=== PATIENT | male | born 1955 | race Caucasian/White ===

== ENCOUNTER → 2016-11-09 | Outpatient (CLI) | payer BC ==
--- NOTE | 2016-11-09 22:20 | CONS ---
DATE OF CONSULTATION: 11/09/2016 This patient is a 61-year-old gentleman who has been reevaluated in the sleep center for obstructive sleep apnea/hypopnea syndrome. HISTORY OF PRESENT ILLNESS/SLEEP-WAKE EVALUATION: Patient has a history of severe obstructive sleep apnea with apnea-hypopnea index 61.1 with oxygen desaturation to 67% documented in 2011. At that time his recommended BiPAP pressure was 14/10 cm of water. Patient continued to use his BiPAP equipment, but for the last several months he developed more tiredness and sleepiness during the day and started to take naps at 1:30 p.m. His sleep schedule is from around 10 or 11 p.m. until 4 a.m. Then he goes back to bed and sleeps from 6:30 a.m. until 8:30 a.m. No problem with falling asleep. No TV in bedroom. He usually sleeps on the back position. He wakes up from sleep 2 times with sweating and nocturia. [place] Sleepiness Scale is 8. PAST MEDICAL HISTORY: 1. BPH. 2. Irritable bowel syndrome. 3. Hyperlipidemia. 4. Hypertension. 5. Diabetes mellitus. 6. Memory problems. 7. Anxiety. MEDICATIONS: 1. Ramipril. 2. Metformin. 3. Venlafaxine. 4. Fenofibrate. 5. Folic acid. 6. Donepezil. 7. Naproxen. 8. Baby aspirin. 9. Vitamins. 10. ( ) 11. Atorvastatin. SOCIAL HISTORY: Negative for smoking or using alcohol. PAST SURGICAL HISTORY: 1. Status post left knee surgery. 2. Dental implants. REVIEW OF SYSTEMS: Tiredness and sleepiness during the day. No fevers. No double vision. No recent chest pain. No shortness of breath. No abdominal pain. No bleeding episodes. No blood in urine. No seizure episodes. PHYSICAL EXAMINATION: GENERAL: A pleasant 61-year-old gentleman without distress. VITAL SIGNS: BP 130/85, HR 82, RR 16. Height 67. Weight 225.6. BMI 35.2. Temperature 97.5. Oxygen saturation at room air 95%. HEENT: PERRCELESTE, EOMI. Evaluation of oropharynx showed tongue protrudes midline; low position of soft palate. NECK: Supple. No JVD. Thyroid is not palpable. LUNGS: Clear to percussion and to auscultation. Good air exchange. No wheezing or rhonchi. HEART: S1, S2 regular. No murmurs, gallops or rubs. ABDOMEN: Obese. EXTREMITIES: No clubbing or cyanosis. AVIATION SURVIVAL TECHNICIAN: Awake, alert, and oriented x3. Cranial nerves 2 to 7 intact. There is no fasciculation or atrophy noted. No focal deficits observed. IMPRESSION: 1. Obstructive sleep apnea/hypopnea syndrome in severe range documented in 2012. Apnea-hypopnea index 61.1 with oxygen desaturation to 67%. Patient is on treatment with BiPAP every night but recently developed tiredness and sleepiness during the day, taking naps. 2. Obesity. Patient increased his weight by 8 pounds. 3. Hypertension. 4. Diabetes mellitus. 5. Hyperlipidemia. 6. History of irritable bowel syndrome. 7. Benign prostatic hypertrophy. 8. Memory problems for the last several years. 9. Anxiety. PLAN: 1. BiPAP titration for reevaluation of effective BiPAP pressure at the present time. 2. Losing weight. 3. Sleep hygiene with regular time in bed for at least 8 hours. 4. No driving if feeling any sleepiness. 5. Prescription for all necessary BiPAP supplies. Thank you very much for allowing me to participate in the management of your patient. Sincerely, Cyrus Adams MD, PhD, FAASM. Diplomat of [place] [employer], Sleep Medicine Board by [place] [employer], [place] Board of Internal Medicine
== END | disposition home or self-care (01) ==
LOC: SLEEP 16:05
PROVIDERS: ATTEND Internal Medicine
DX: G47.33 Obstructive sleep apnea (adult) (pediatric) (principal); E66.9 Obesity, unspecified; I10 Essential (primary) hypertension; E11.9 Type 2 diabetes mellitus without complications; E78.5 Hyperlipidemia, unspecified; K58.9 Irritable bowel syndrome, unspecified; N40.0 Benign prostatic hyperplasia without lower urinary tract symptoms; F48.9 Nonpsychotic mental disorder, unspecified; F41.9 Anxiety disorder, unspecified; Z79.4 Long term (current) use of insulin; Z79.82 Long term (current) use of aspirin; Z68.35 Body mass index [BMI] 35.0-35.9, adult; Z79.899 Other long term (current) drug therapy
CPT/HCPCS: 99211

== ENCOUNTER → 2017-02-22 | Outpatient (CLI) | payer BC ==
--- NOTE | 2017-02-22 13:28 | PN ---
DATE OF SERVICE: 02/22/2017 A 62-year-old gentleman who had been followed in the sleep center for treatment of obstructive sleep apnea-hypopnea syndrome. Recently patient had BiPAP titration, which showed that effective pressure is 15/11 cm of water and 14/10 cm of water, which patient used before. Titration was not fully effective. The patient received his new BiPAP unit and using it every night and he brought his BiPAP unit for checking. I checked his BiPAP unit. Pressure is 15/11 cm of water. Usage is 29 out of 30 nights for more than 4 hours. Average use is 5.6 hours. Leak is 29 L per minute, which is acceptable. Apnea-hypopnea index for last night 2.0; for the total month average 2.6, which is in normal range. [place] Sleepiness Scale today is 5. MEDICATIONS: Ramipril, metformin, venlafaxine, fenofibrate, folic acid, donepezil, naproxen, baby aspirin, Centrum Silver, atorvastatin. PHYSICAL EXAMINATION: During physical exam, patient in no distress. VITAL SIGNS: BP 126/81, HR 69, RR 16. Weight 228.6. Temperature 98.0. Oxygen saturation at room air 96%. HEENT: PERRLA, EOMI. Evaluation of oropharynx low position of soft palate. NECK: Supple. No JVD, Thyroid is not palpable. LUNGS: Clear to percussion and to auscultation. Good air exchange. No wheezing or rhonchi. HEART: S1, S2 regular. No murmurs, gallops, or rubs. ABDOMEN: Slightly obese. TRANSPORTATION MAINTENANCE WORKER: Awake, alert, and oriented x3. Cranial nerves 2 to 7 intact. There is no fasciculation or atrophy noted. No focal deficits observed. IMPRESSION: 1. Obstructive sleep apnea hypopnea syndrome on control with BiPAP at 15/11 cm of water. 2. Obesity. 3. Diabetes mellitus. 4. Depression. 5. Hyperlipidemia. PLAN: 1. Patient will continue to use his BiPAP equipment every night for the whole night. 2. Losing weight. 3. Sleep hygiene with regular time in bed for at least 8 hours. 4. No driving if feeling any sleepiness. 5. Follow-up visit in one year or earlier if patient has any problems. Thank you very much for allowing me to participate in the management of your patient. Sincerely, Cyrus Adams MD, PhD, FAASM Diplomat of [place] Board of Sleep Medicine, Sleep Medicine Board by [place] [employer] Specialities [place] Board of Internal Medicine Slot Ambassador of [facility] [place]
== END ==
LOC: SLEEP 11:21
PROVIDERS: ATTEND Internal Medicine
DX: G47.33 Obstructive sleep apnea (adult) (pediatric) (principal); E66.9 Obesity, unspecified; E11.9 Type 2 diabetes mellitus without complications; F32.9 Major depressive disorder, single episode, unspecified; E78.5 Hyperlipidemia, unspecified; Z79.1 Long term (current) use of non-steroidal anti-inflammatories (NSAID); Z79.82 Long term (current) use of aspirin; Z79.899 Other long term (current) drug therapy

== ENCOUNTER → 2018-02-21 | Outpatient (CLI) | payer BC ==
--- NOTE | 2018-02-21 12:00 | SFUN ---
SLEEP CENTER FOLLOW UP NOTE DATE OF SERVICE: 02/21/2018 A 63-year-old gentleman who has been followed in the Sleep Center for treatment of obstructive sleep apnea-hypopnea syndrome. Patient successfully continued to use his BiPAP equipment every night, sometimes feels tiredness during the day. No problem with the usage of the machine. [place] Sleepiness Scale today is 30, which is totally normal. I checked his BiPAP unit, BiPAP pressure 15/11 cm of water. Usage is every night at 27/30 nights more than 4 hours. Average usage 4.8 hours. Leak is 17 L/minute which is normal range. Apnea-hypopnea index is only 2.1, which is totally perfect. MEDICATIONS: Ramipril, metformin, venlafaxine, fenofibrate, folic acid, donepezil, baby aspirin, vitamin C supplement, vitamin D3, vitamin D, Centrum Silver, atorvastatin, Tamsulosin. PHYSICAL EXAM: Patient in no distress, BP 135/79, HR 87, RR 16, height 5, 7-1/2, weight 233.6, BMI 35.9, temperature 98.2, oxygen saturation at room air 95%. OROPHARYNX: Low position of soft palate. ABDOMEN: Slightly obese. Neck Supple, no JVD. Thyroid is not palpable. LUNGS Clear to percussion and to auscultation. Good air exchange. No wheezing or rhonchi. HEART S1, S2 regular. No murmurs, gallops, or rubs. EXTREMITIES No clubbing or cyanosis. WET MILLING WHEEL OPERATOR Awake, alert, and oriented X3. Cranial nerves 2 to 7 intact. There is no fasciculation or atrophy. noted. No focal deficits observed. IMPRESSION: 1. Obstructive sleep apnea-hypopnea syndrome, on full control with BiPAP with a pressure of 15/11 cm of water. Patient demonstrated great compliance with treatment, benefitting from treatment. 2. Obesity, patient increased his weight on 5 pounds compared to the previous visit. 3. Possibly some restriction of sleep schedule, possibly insufficient sleep. 4. Diabetes mellitus. 5. History of depression. 6. Hyperlipidemia. PLAN: 1. Patient will continue to use BiPAP equipment every night for the whole night. 2. Prescription for all necessary BiPAP supplies including mask, tube, filters. 3. Sleep hygiene with regular time in bed for at least 7 hours per night. 4. Losing weight. 5. No driving if feeling any sleepiness. 6. Followup visit in 1 year or earlier if patient has any problems. Thank you very much for allowing me to participate in the management of your patient. Sincerely, Cyrus Adams MD, PhD, FAASM Diplomat of [place] Board of Medical Specialties [employer] [place] Board of Internal Medicine Floorwalker of [facility] [place] MMODL / VANESSAN: [id number] /
== END | disposition home or self-care (01) ==
LOC: SLEEP 10:39
PROVIDERS: ATTEND Internal Medicine
DX: G47.33 Obstructive sleep apnea (adult) (pediatric) (principal); E11.9 Type 2 diabetes mellitus without complications; E78.5 Hyperlipidemia, unspecified; E66.9 Obesity, unspecified; Z68.35 Body mass index [BMI] 35.0-35.9, adult; Z86.59 Personal history of other mental and behavioral disorders; Z79.82 Long term (current) use of aspirin; Z79.899 Other long term (current) drug therapy

== ENCOUNTER → 2019-03-06 | Outpatient (CLI) | payer MEDICARE, OTHER ==
--- NOTE | 2019-03-06 12:02 | SFUN ---
SLEEP CENTER FOLLOW UP NOTE DATE OF SERVICE: 03/06/2019 This 64-year-old gentleman has been followed in sleep center for treatment of obstructive sleep apnea-hypopnea syndrome. Last time I saw patient one year ago, he continued to use BiPAP equipment every night for the whole night without significant problems with the machine. No snoring. [place] Sleepiness Scale today is 2. I checked his BiPAP unit. BiPAP pressure is 15/11 cm of water. Usage is 30 out of 30 nights for more than 4 hours with average usage is 6.5 hours. Leak 23 L/minute, which is borderline. Apnea-hypopnea index only 3.7, which is totally normal. MEDICATIONS: Ramipril, metformin, venlafaxine, fenofibrate, folic acid, donepezil, baby aspirin, vitamin C supplement, vitamin D3, Centrum Silver and . PHYSICAL EXAM: During physical exam, patient in no distress. VITAL SIGNS: BP 120/70, HR 76, RR 16, height 5 feet 7 inches, weight 223, body mass index 34.9, temperature 97.8, oxygen saturation at room air 96%. HEENT: PERRLA, EOMI. Oropharynx low position of soft palate. Mallampati 4. NECK: Supple, no JVD. Thyroid is not palpable. LUNGS: Clear to percussion and to auscultation. Good air exchange. No wheezing or rhonchi. HEART: S1, S2 regular. No murmurs, gallops, or rubs. ABDOMEN: Slightly obese. EXTREMITIES: No clubbing or cyanosis. COMIC ARTIST: Awake, alert, and oriented X3. Cranial nerves 2 to 7 intact. There is no fasciculation or atrophy. noted. No focal deficits observed. IMPRESSION: 1. Obstructive sleep apnea-hypopnea syndrome on control with BiPAP. The patient demonstrated 100% compliance with treatment, benefitting from treatment. 2. Obesity, patient lost 10 pounds since last visit. 3. Diabetes mellitus. 4. History of depression. 5. Hyperlipidemia. 6. Status post recent appendicitis and appendectomy. PLAN: 1. Prescription for all necessary BiPAP supplies including mask, tube, filters. 2. Continue losing weight. 3. Sleep hygiene with regular time in bed for at least 7-1/2 hours. 4. No driving if feeling any sleepiness. Thank you very much for allowing me to participate in management of your patients. Sincerely, Cyrus Adams MD, PhD, FAASM Diplomat of [place] Board of Medical Specialties [place] Board of Internal Medicine Die Stamper of [facility] [place] MMRENE / TONY: [id number] /
== END ==
LOC: SLEEP 10:20
PROVIDERS: ATTEND Internal Medicine
DX: G47.33 Obstructive sleep apnea (adult) (pediatric) (principal); E66.9 Obesity, unspecified; E11.9 Type 2 diabetes mellitus without complications; F32.9 Major depressive disorder, single episode, unspecified; E78.5 Hyperlipidemia, unspecified; Z90.89 Acquired absence of other organs; Z99.89 Dependence on other enabling machines and devices; Z79.899 Other long term (current) drug therapy; Z79.84 Long term (current) use of oral hypoglycemic drugs; Z79.82 Long term (current) use of aspirin

== ENCOUNTER → 2020-09-08 | Outpatient (CLI) | payer MEDICARE ==
--- NOTE | 2020-09-08 12:12 | SFUN ---
SLEEP CENTER FOLLOW UP NOTE DATE OF SERVICE: 09/08/2020 This 65-year-old gentleman has been followed in the Sleep Center for treatment of obstructive sleep apnea-hypopnea syndrome. Last time I saw patient about 1-1/2 years ago. The patient continued to use his BiPAP equipment every night. No snoring with the machine. [place] Sleepiness Scale is 5. I checked his BiPAP unit pressure is 15/11 cm of water. Usage is 100% of nights, average 7.3 hours per night. Leak is only 1 L/minute. Apnea-hypopnea index is only 2.2, which is perfect. MEDICATIONS: Ramipril 10 mg once a day, metformin 500 mg once a day , venlafaxine XR 150 mg once a day, tamsulosin 0.4 mg twice a day, fenofibrate 160 mg once a day, meloxicam 7.5 mg once a day, folic acid 1 mg once a day, aspirin 81 mg once a day, donepezil 10 mg once a day, finasteride 5 mg once a day. PHYSICAL EXAMINATION: GENERAL: Patient in no distress. VITAL SIGNS: BP 139/80, HR 88, RR 15, height 5 feet 7 inches, weight 241, BMI 37.7, temperature 98.5, oxygen saturation at room air 96%. HEENT: PERRLA, EOMI. Oropharynx extremely low position of soft palate. Mallampati 4. NECK: Supple, no JVD. Thyroid is not palpable. LUNGS: Clear to percussion and to auscultation. Good air exchange. No wheezing or rhonchi. HEART: S1, S2 regular. No murmurs, gallops, or rubs. ABDOMEN: Slightly obese. EXTREMITIES: No clubbing or cyanosis. ARCHIVES TECHNICIAN: Awake, alert, and oriented X3. Cranial nerves 2 to 7 intact. There is no fasciculation or atrophy. noted. No focal deficits observed. IMPRESSION: 1. Obstructive sleep apnea-hypopnea syndrome. The patient demonstrated 100% compliance with treatment, benefitting from treatment with BiPAP, normal respiration on BiPAP. 2. Obesity. 3. Diabetes mellitus. 4. History of depression. 5. Hyperlipidemia. 6. Status post appendectomy. PLAN: 1. Patient will continue to use PAP equipment every night for the whole night. 2. Sleep hygiene with regular time in bed for at least 7-1/2 to 8 hours. 3. Precautions related to driving. No driving if feeling sleepiness. 4. I will maintain all necessary prescription for PAP supplies including mask, tube, filters. 5. Watching weight. 6. No driving if feeling sleepiness. 7. Follow-up visit in 6 months or earlier if patient has any problems. Thank you very much for allowing me to participate in management of your patient. Sincerely, Cyrus Adams MD, PhD, FAASM Diplomat of [place] Board of Medical Specialties [place] Board of Internal Medicine Orthopedic Physician Assistant of [facility] [place] MMODL / VANESSAN: [id number] /
== END | disposition home or self-care (01) ==
LOC: SLEEP 10:12
PROVIDERS: ATTEND Internal Medicine
DX: G47.33 Obstructive sleep apnea (adult) (pediatric) (principal); E66.9 Obesity, unspecified; E11.9 Type 2 diabetes mellitus without complications; E78.5 Hyperlipidemia, unspecified; Z68.37 Body mass index [BMI] 37.0-37.9, adult; Z90.49 Acquired absence of other specified parts of digestive tract; Z86.59 Personal history of other mental and behavioral disorders; Z99.89 Dependence on other enabling machines and devices; Z79.84 Long term (current) use of oral hypoglycemic drugs; Z79.1 Long term (current) use of non-steroidal anti-inflammatories (NSAID); Z79.82 Long term (current) use of aspirin; Z79.899 Other long term (current) drug therapy

== ENCOUNTER → 2021-04-07 | Outpatient (CLI) | payer MEDICARE ==
--- NOTE | 2021-04-07 13:16 | SFUN ---
SLEEP CENTER FOLLOW UP NOTE DATE OF SERVICE: 04/07/2021 66-year-old gentleman has been followed in Sleep Center for treatment of obstructive sleep apnea-hypopnea syndrome. The patient continues to use his CPAP equipment every night for the whole night supplies and time, he changed his company to [employer]. [place] Sleepiness Scale today is 5, which is totally normal. I checked his BiPAP unit. BiPAP pressure 15/11 which is 100% of the time more than 4 hours, 77.3 hours per night. Leak is only 4 L/minute which is perfect. Apnea- hypopnea index is 2.3, which is also perfect. MEDICATIONS: Metformin 500 mg once a day. Venlafaxine XR 150 mg once a day. 10 mg once a day. Tamsulosin 0.4 mg twice a day. Fenofibrate 160 mg once a day. Meloxicam 7.5 mg once a day. Folic acid 1 mg once a day. Aspirin 81 mg once a day. Donepezil 10 mg once a day. Finasteride 5 mg once a day. PHYSICAL EXAMINATION: GENERAL: Patient in no distress. VITAL SIGNS: BP 120/76, HR 76, RR 15, height 5 feet 7 inches, weight 228.6, temperature 96.9. Oxygen saturation at room air 96%. Body mass index 35.7. Oropharynx extremely low position of soft palate. Mallampati 4. NECK: Supple, no JVD. Thyroid is not palpable. LUNGS: Clear to percussion and to auscultation. Good air exchange. No wheezing or rhonchi. HEART: S1, S2 regular. No murmurs, gallops, or rubs. ABDOMEN: Obese. Soft and nontender. Bowel sounds are present. No organomegaly appreciated. EXTREMITIES: No clubbing or cyanosis. TRUCKSMITH: Awake, alert, and oriented X3. Cranial nerves 2 to 7 intact. There is no fasciculation or atrophy. noted. No focal deficits observed. IMPRESSION: 1. Obstructive sleep apnea-hypopnea syndrome. Patient continued to use BiPAP equipment every night for the whole night. Normal aspiration on BiPAP great compliance. 2. Diabetes mellitus. 3. Obesity. 4. History of depression. 5. Hyperlipidemia. 6. Status post appendectomy. PLAN: 1. The patient needs to replace air filter in BPAP unit 2. Patient will continue to use PAP equipment every night for the whole night. 3. Sleep hygiene with regular time in bed for at least 7-1/2 to 8 hours. 4. Precautions related to driving. No driving if feeling sleepiness. 5. I will maintain all necessary prescription for PAP supplies including mask, tube, filters. 6. Watching weight. 7. Follow-up visit in 6 months or earlier if patient has any problems. Thank you very much for allowing me to participate in management of your patient. Sincerely, Cyrus Adams MD, PhD, FAASM Diplomat of [place] Board of Medical Specialties Sleep Medicine Board of [place] Board of Internal Medicine Lock Expert of [facility] [place] MMODL / IJN: [id number] / ASHLEY
== END | disposition home or self-care (01) ==

== ENCOUNTER → 2021-10-06 | Outpatient (CLI) | payer MEDICARE ==
--- NOTE | 2021-10-06 15:10 | SFUN ---
SLEEP CENTER FOLLOW UP NOTE DATE OF SERVICE: 10/06/2021 This 66-year-old gentleman has been followed in Sleep Center for treatment of obstructive sleep apnea-hypopnea syndrome. The patient continues to use his CPAP equipment every night, getting his CPAP supplies on time. No snoring with the machine. [place] Sleepiness Scale today is 1, which is absolutely normal. I checked his BiPAP unit. Pressure is 15/11 cm of water. Usage is 30/30 nights for more than 4 hours, average 6.9 hours per night, which is great compliance. Leak is 29 L/minute, which is borderline. Apnea-hypopnea index is 4.7, which is in normal range, but slightly increased from the last visit, when it was 2.3. MEDICATIONS: 1. Ramipril 10 mg once a day. 2. Metformin 500 mg once a day. 3. Venlafaxine 150 mg once a day. 4. Fenofibrate 160 mg once a day. 5. Celecoxib 200 mg twice a day. 6. Aspirin 81 mg once a day. 7. Finasteride 5 mg once a day. 8. Donepezil 10 mg once a day. 9. 10 mg once a day. 10.Vitamin supplements. PHYSICAL EXAMINATION: GENERAL: Pleasant patient in no distress. VITAL SIGNS: BP 137/84, HR 85, RR 16, weight 228.2 pounds, which is the same as during the last visit, temperature 96.9, oxygen saturation at room air 96%, body mass index around 35. HEENT: PERRLA, EOMI, evaluation of oropharynx showed tongue protrudes midline. Extremely low position of soft palate; Mallampati IV. NECK: Supple, no JVD. Thyroid is not palpable. LUNGS: Clear to percussion and to auscultation. Good air exchange. No wheezing or rhonchi. HEART: S1, S2 regular. No murmurs, gallops, or rubs. ABDOMEN: Slightly obese. EXTREMITIES: No clubbing or cyanosis. BODY WORKER: Awake, alert, and oriented X3. Cranial nerves 2 to 7 intact. There is no fasciculation or atrophy. noted. No focal deficits observed. IMPRESSION: 1. Obstructive sleep apnea-hypopnea syndrome. Patient demonstrated great compliance with BiPAP treatment, benefitting from treatment. 2. Diabetes mellitus. 3. History of depression. 4. Obesity. 5. Hyperlipidemia. 6. Status post appendectomy. PLAN: 1. Patient will continue to use PAP equipment every night for the whole night. 2. Sleep hygiene with regular time in bed for at least 7-1/2 to 8 hours. 3. Precautions related to driving. No driving if feeling sleepiness. 4. I will maintain all necessary prescription for PAP supplies including mask, tube, filters. 5. Watching weight. 6. Follow-up visit in 6 months or earlier if patient has any problems. Thank you very much for allowing me to participate in the management of your patient. Sincerely, Cyrus Adams MD, PhD, FAASM Diplomat of [place] Board [employer] Medical Specialties Sleep Medicine Board of [place] Board of Internal Medicine Behavioral Analyst of [facility] [place] MMGLENNAL / VANESSAN: [id number] /
== END | disposition home or self-care (01) ==
LOC: SLEEP 10:20
PROVIDERS: ATTEND Internal Medicine
DX: G47.33 Obstructive sleep apnea (adult) (pediatric) (principal); E11.9 Type 2 diabetes mellitus without complications; E66.9 Obesity, unspecified; E78.5 Hyperlipidemia, unspecified; Z86.59 Personal history of other mental and behavioral disorders; Z90.49 Acquired absence of other specified parts of digestive tract

== ENCOUNTER → 2022-01-04 | Outpatient (CLI) | payer MEDICARE ==
[2022-01-04 15:11] LABS: Basophils # (A) 0.03 X 10*3/uL (0.00-0.10); Basophils % (A) 0.5 %; Eosinophils # (A) 0.19 X 10*3/uL (0.04-0.35); HCT 45.7 % (39.6-50.0); HGB 14.9 g/dL (13.0-17.0); Immature Grans, Automated 0.5 %; Lymphocytes # (A) 1.05 X 10*3/uL (0.90-5.00); Lymphocytes % (A) 16.5 %; MCHC 32.6 g/dL (32.0-37.0); MCV 89.1 fL (80.0-97.0); Monocytes # (A) 0.67 X 10*3/uL (0.20-1.00); Monocytes % (A) 10.5 %; NRBC Per 100 WBC 0 /100 WBCS (0.0-0.0); Platelet Count 215 X 10*3/uL (140-440); RBC 5.13 X 10*6/uL (4.40-5.60); RDW 12.4 % (11.5-14.5); WBC 6.37 X 10*3/uL (4.50-10.00)
[2022-01-04 15:26] LABS: African American GFR (CKD) 89.2 (60.0-200.0); Anion Gap 11.6 mmol/L (10.00-18.00); BUN/Creat Ratio 26.2 Ratio (12.00-20.00); Blood Urea Nitrogen 26.2 mg/dL (9.0-27.0); Carbon Dioxide 22.4 mmol/L (20.0-27.5); Potassium 4.2 mmol/L (3.5-5.5)
[2022-01-04 21:14] LABS: Appearance,Urine Cloudy (Clear); Bacteria,Urine None Seen /HPF (None Seen); Bilirubin,Urine Negative (Negative); Blood,Urine Negative (Negative); Calcium Oxalate Crystals,Urine Present /LPF (None Seen); Color,Urine Yellow (Yellow); Ketones,Urine Trace mg/dL (Negative); Nitrite,Urine Negative (Negative); PH, Urine 5.5 (5.0-8.0); Specific Gravity,Urine 1.026 (1.001-1.030); Sperm,Urine Present /LPF (None Seen); Urobilinogen,Urine 0.2 (0.2,1.0)
== END | disposition home or self-care (01) ==
LOC: LABPAT 09:47
PROVIDERS: ATTEND Urology
DX: Z01.812 Encounter for preprocedural laboratory examination (principal); N40.1 Benign prostatic hyperplasia with lower urinary tract symptoms; E10.9 Type 1 diabetes mellitus without complications
CPT/HCPCS: 80048; 81001; 85025; 87086; 93005

== ENCOUNTER 2022-01-12 09:41 | Inpatient (IN) | payer MEDICARE ==
--- NOTE | 2022-01-08 15:00 | P.HPIHPCON ---
History of Present Illness H&P Date: 01/12/22 Chief Complaint: BPH This is a 66-year-old male with history of 100 g prostate, he he is symptomatic secondary to his enlarged prostate. Discussed with him given his prostate size the option of robotic simple prostatectomy versus a HoLEP. Discussed risk and benefit of each approach. He agreed to proceed with robotic simple prostatectomy discussed the risk which includes but not limited to bleeding, infection, urinary incontinence, erectile dysfunction, retrograde ejaculation, injury to nearby organs which includes but not limited to bladder, rectum, bowel. Discussed also potential persistent overactive bladder symptoms even with simple prostatectomy. Discussed also risk from anesthesia. He understood all the risk and agreed to proceed Consent for Procedure: I have explained the operation/procedure to the patient, including the risks, benefits, side effects, alternative therapies (including not receiving the proposed treatment or service), the likelihood of the patient achieving his/her goals, and potential recuperation problems for the procedure/sedation/analgesia, as well as any blood products, if indicated. I also explained to the patient the risks, benefits and side effects of the alternatives, as well as the risks relat ed to not receiving the proposed procedure, care, treatment, or services. Surgical - Exam - General no distress, no pain - Eyes normal ocular movement, pale - ENT normal nares, normal mucosa - Respiratory normal expansion, normal respiratory effort - Abdomen Abdomen: soft, non tender - Psychiatric oriented to time, oriented to person, oriented to place Assessment and Plan Assessment: OR for robotic simple prostatectomy
[2022-01-10 15:11] VITALS: BMI 34.2
[~2022-01-12 09:41] MED LIST: DEXAMETHASONE SOD PHOSPHATE 4 MG/ML 1 ML VIAL IV ONE; GENTAMICIN 120 MG in SODIUM CHLORIDE 0.9% 100 ML IVPB PRN; HEPARIN SODIUM,PORCINE/PF 5,000 UNIT/0.5 ML SYRINGE SQ PRN; HYDROmorphone 0.5 MG/0.5 ML SYRINGE IVP PRN; LIDOCAINE 1% (10MG/ML) FOR IV START INTRADERMA PRN; MIDAZOLAM 2 MG/2 ML VIAL IV PRN; ONDANSETRON 4 MG/2 ML VIAL IVP ONE
[2022-01-12 11:08] LABS: Glucose,Whole Blood 99 mg/dL (75-99)
[2022-01-12] MEDS: LACTATED RINGERS 1,000 ML IV SCH ×2 (11:09→11:51)
[2022-01-12] MEDS ORDERED: fentaNYL (PF) 50 MCG/ML 2 ML AMP ONE (12:44)
[2022-01-12] MEDS ORDERED: SUCCINYLCHOLINE CHLORIDE 100 MG/5 ML SYR IV ONE (12:44)
[2022-01-12] MEDS ORDERED: GLYCOPYRROLATE 0.2 MG/ML 2 ML VIAL ONE (12:44)
[2022-01-12] MEDS ORDERED: SODIUM CHLORIDE 0.9% (PF) 10 ML VIAL ONE (12:44)
[2022-01-12] MEDS ORDERED: PROPOFOL 10 MG/ML 20 ML VIAL IV ONE (12:44)
[2022-01-12] MEDS ORDERED: LIDOCAINE 2% INJ 20 MG/ML (2 ML VIAL) ONE (12:44)
[2022-01-12] MEDS ORDERED: DEXAMETHASONE SOD PHOSPHATE 4 MG/ML 1 ML VIAL ONE (12:44)
[2022-01-12] MEDS ORDERED: ROCURONIUM 10 MG/ML (5 ML VIAL) IV ONE (12:44)
[2022-01-12] MEDS ORDERED: NEOSTIGMINE 1 MG/ML 10 ML VIAL ONE (12:44)
[2022-01-12] MEDS ORDERED: MIDAZOLAM 2 MG/2 ML VIAL ONE (12:44)
[2022-01-12] MEDS ORDERED: ROPIVACAINE 5 MG/ML 30 ML VIAL ONE (12:44)
[2022-01-12] MEDS ORDERED: BUPIVACAIN-EPI 0.25%-1:200,000 30 ML VIAL SQ ONE ×3 (13:08→16:01)
--- NOTE | 2022-01-12 16:01 | P.OP ---
Date of Procedure: 01/12/22 Preoperative Diagnosis: BPH Postoperative Diagnosis: same Procedure(s) Performed: Robotic simple prostatectomy Implants: none Anesthesia: LISA Surgeon: Neeraj Claros Pasta Maker #1: Dominique Marie Estimated Blood Loss (ml): 100 Pathology: other (Prostate adenoma) Condition: stable Disposition: PACU Indications for Procedure: This is a 66-year-old male with history of 100 g prostate, he he is symptomatic secondary to his enlarged prostate. Discussed with him given his prostate size the option of robotic simple prostatectomy versus a HoLEP. Discussed risk and benefit of each approach. He agreed to proceed with robotic simple prostatectomy discussed the risk which includes but not limited to bleeding, infection, urinary incontinence, erectile dysfunction, retrograde ejaculation, injury to nearby organs which includes but not limited to bladder, rectum, bowel. Discussed also potential persistent overactive bladder symptoms even with simple prostatectomy. Discussed also risk from anesthesia. He understood all the risk and agreed to proceed Description of Procedure: After preoperative antibiotics were started, the patient was taken to the operating room. Anesthesia was induced and the patient was placed in a supine position with adequate padding of the pressure points, shoulders, back, legs and arms. He was then prepped and draped in the standard fashion. A critical pause was performed using two patient identifiers. A 16F calzada catheter was placed to gravity drainage. A pneumoperitoneum was obtained using a Veress needle, after pneumoperitoneum was obtained a 8 mm c amera port was placed. Under direct vision a 8mm robotic ports was placed lateral to each rectus slightly below the camera port. The left iliac fossa 8mm port was placed. The right district administrative assistant right iliac fossa 12mm port and right paramedian 5mm portwere placed. After the patient was placed in the trendelenberg position, the robot was then docked to the 8mm robotic ports and then each robotic arm and tower was checked in relation to the patient's legs and hands to avoid inadvertent compression. The peritoneal cavity was inspected. Adhesions were taken down along the left lower quadrant An inverted U-shaped incision began laterally to the left medial umbilical ligament and extended high across the midline to the right umbilical ligament. The limbs of the "U" extended to the level of the vasa on both sides. We next developed the preperitoneal space and the space of Retzius. Cautery was used to dissected the bladder away from the prostate, the incision was made in close proximity to the prostate, and incision was extended laterally and at this point the plane between the adenoma and the surgical capsule is identified. Both ureteral orifices were identified and neither was injured during the dissection . The adenoma was dissected off of the capsule by combination of blunt dissection and minimum cautery. dissection was initially started along the anterior surface and posterior surface of adenoma, and this was carried laterally. The dissection was carried to the apex, at this point the urethral-prostatic junction was visualized and the prostate was transected at the junction. Prostate adenoma was placed in an endocatch bag . A 9and 6 inch 3-0 V-Lock suture was used to anastomose the urethra and bladder, starting at the 6:00 posterior position. Mucosa was secured in every stitch, to ensure a mucosa to mucosa anastomosis. The stitch was regularly cinched and the anastomosis tightened. . The 20 Fr Calzada catheter was advanced, the bladder filled, and the anastomosis was tested. Anastomsis was watertight at 150 mL. balloon was inflated to 10 mL The robot was undocked. specimen was extracted from the supraumbilical incision. The periumbilical fascia was closed with 1-0-PDS suture in figure of 8 fashion. All ports were closed with a subcuticular 4-0 monocryl and Dermabond. Sponge, instrument, and needle counts were correct at the end of the case x2. The patient tolerated the surgery well and without complication. He awoke without difficulty and was taken to the recovery room in stable condition
[2022-01-12 16:52] LABS: Glucose,Whole Blood 166 mg/dL (75-99)
[2022-01-12] MEDS: SODIUM CHLORIDE 0.9% 1,000 ML IV SCH (17:33)
[2022-01-12 17:36] VITALS: RESP 18
[2022-01-12] MEDS: KETOROLAC 15 MG/ML 1 ML VIAL IVP SCH ×2 (18:05→23:58)
--- NOTE | 2022-01-12 19:56 | P.ANPRN ---
Procedure Note - Anesthesia - Nerve Block Performed Bilateral Erector Spinae Single Time Out Performed: Yes Date of Procedure: 01/12/22 Procedure Start Time: 11:34 Procedure Stop Time: 11:40 Indication: Acute Post-Operative Pain, Requested by Surgeon Sedation Type: Sedate with meaningful contact maintained Preparation: Sterile Prep Position: Prone Needle Types: Pajunk Needle Gauge: 21 Ultrasound used to visualize needle placement: Yes Ultrasound used to observe medication spread: Yes Blood Aspirated: No Pain Paresthesia on Injection Noted: No Resistance on Injection: Normal Image Stored and Saved: Yes Events: Uneventful and Well Tolerated (ropi .5% 15cc plus normal saline 10cc plus dexamethasone 4mg given bilaterally at L1)
[2022-01-12] MEDS ORDERED: VENLAFAXINE HCL 75 MG TAB PO SCH (21:00)
[2022-01-12] MEDS ORDERED: DONEPEZIL 10 MG TAB PO SCH (21:00)
[2022-01-12] MEDS: HEPARIN SODIUM,PORCINE/PF 5,000 UNIT/0.5 ML SYRINGE SQ SCH (21:34)
[2022-01-12] MEDS: HYDROcodone/APAP 5-325MG 1 EACH TAB PO PRN (22:10)
[2022-01-13] MEDS: HEPARIN SODIUM,PORCINE/PF 5,000 UNIT/0.5 ML SYRINGE SQ SCH ×2 (04:05→11:22)
[2022-01-13] MEDS: KETOROLAC 15 MG/ML 1 ML VIAL IVP SCH ×2 (04:54→11:22)
[2022-01-13] MEDS: SODIUM CHLORIDE 0.9% 1,000 ML IV SCH (04:56)
[2022-01-13] MEDS ORDERED: lisinopriL 20 MG TAB PO SCH (09:00)
[2022-01-13] MEDS ORDERED: VENLAFAXINE HCL ER 150 MG CAP PO SCH (09:00)
[2022-01-13] MEDS ORDERED: metFORMIN 500 MG TAB PO SCH (09:00)
[2022-01-13 09:32] VITALS: BP 121/76; PULSE 88; TEMP 98.8
[2022-01-13] MEDS: HYDROcodone/APAP 5-325MG 1 EACH TAB PO PRN (11:22)
--- NOTE | 2022-01-13 18:13 | P.DS ---
Providers Date of admission: 01/12/22 09:59 Expected date of discharge: 01/13/22 Attending physician: Neeraj Claros MD Primary care physician: Martha Steiner DO Hospital Course: On the day of admission, the patient underwent an uncomplicated robotic-assisted laparoscopic simple prostatectomy. The perioperative course was unremarkable. The patient remained afebrile with stable vital signs. On the first postoperative day, he was reasonably comfortable. On examination, the abdomen was soft and nondistended. The incisions were clean, dry, and intact. The Steward catheter was draining clear yellow urine. Procedures: Robotic-assisted laparoscopic simple prostatectomy on 01/12/2022. Patient Condition at Discharge: Good Plan - Discharge Summary Discharge Rx Participant: Yes New Discharge Prescriptions: New Ciprofloxacin HCl [Cipro] 250 mg PO Q12HR 3 Days #6 tab Ketorolac [Toradol] 10 mg PO Q6HR PRN #12 tab PRN Reason: Pain No Action Fenofibrate 160 mg PO DAILY Folic Acid 1 mg PO DAILY Aspirin [Adult Low Dose Aspirin EC] 81 mg PO DAILY Venlafaxine HCl [Effexor] 75 mg PO HS Finasteride [Proscar] 5 mg PO DAILY Alfuzosin HCl [Alfuzosin HCl ER] 10 mg PO HS Ubidecarenone [Co Q-10] 400 mg PO DAILY Ascorbic Acid [Vitamin C] 1,000 mg PO DAILY Vitamin E 400 unit PO DAILY Cholecalciferol [Vitamin D3 (125 Mcg = 5000 Iu)] 250 mcg PO DAILY Celecoxib [CeleBREX] 200 mg PO BID metFORMIN HCL 500 mg PO DAILY Venlafaxine HCl [Effexor XR] 150 mg PO DAILY Ramipril [Altace] 10 mg PO DAILY Donepezil HCl [Aricept] 10 mg PO HS Multivit-Min/FA/Lycopen/Lutein [Centrum Silver Men Tablet] 1 each PO DAILY Cyanocobalamin/Cobamamide [Vitamin B-12 5,000 Mcg Tab Sl] 1 tab SUBLINGUAL DAILY Discharge Medication List Alfuzosin HCl [Alfuzosin HCl ER] 10 mg PO HS 01/10/22 [History] Ascorbic Acid [Vitamin C] 1,000 mg PO DAILY 01/10/22 [History] Aspirin [Adult Low Dose Aspirin EC] 81 mg PO DAILY 01/10/22 [History] Celecoxib [CeleBREX] 200 mg PO BID 01/10/22 [History] Cholecalciferol [Vitamin D3 (125 Mcg = 5000 Iu)] 250 mcg PO DAILY 01/10/22 [History] Cyanocobalamin/Cobamamide [Vitamin B-12 5,000 Mcg Tab Sl] 1 tab SUBLINGUAL DAILY 01/10/22 [History] Donepezil HCl [Aricept] 10 mg PO HS 01/10/22 [History] Fenofibrate 160 mg PO DAILY 01/10/22 [History] Finasteride [Proscar] 5 mg PO DAILY 01/10/22 [History] Folic Acid 1 mg PO DAILY 01/10/22 [History] Multivit-Min/FA/Lycopen/Lutein [Centrum Silver Men Tablet] 1 each PO DAILY 01/10/22 [History] Ramipril [Altace] 10 mg PO DAILY 01/10/22 [History] Ubidecarenone [Co Q-10] 400 mg PO DAILY 01/10/22 [History] Venlafaxine HCl [Effexor XR] 150 mg PO DAILY 01/10/22 [History] Venlafaxine HCl [Effexor] 75 mg PO HS 01/10/22 [History] Vitamin E 400 unit PO DAILY 01/10/22 [History] metFORMIN HCL 500 mg PO DAILY 01/10/22 [History] Ciprofloxacin HCl [Cipro] 250 mg PO Q12HR 3 Days #6 tab 01/13/22 [Rx] Ketorolac [Toradol] 10 mg PO Q6HR PRN #12 tab 01/13/22 [Rx] Follow up Appointment(s)/Referral(s): Neeraj Claros MD [STAFF PHYSICIAN] - 01/24/22 Patient Instructions/Handouts: Robot Assisted Laparoscopic Prostatectomy (DC) Activity/Diet/Wound Care/Special Instructions: Discharge home with Steward catheter. Please provide patient with an overnight drainage bag as well as a urinary leg bag, and instruct him on the use of both. Okay to shower. Diet as tolerated. No lifting, driving, or strenuous activity. Begin taking ciprofloxacin one day prior to follow-up appointment. Please reassure patient that it is common to experience the following: Hematuria, urinary leakage around the catheter, abdominal wall bruising, and penoscrotal swelling. Discharge Disposition: HOME SELF-CARE
== END 2022-01-13 14:19 | disposition home or self-care (01) | DRG 708 ==
LOC: 2ORMAIN 09:59 → 4SSUR 16:59
PROVIDERS: ADMIT Urology; ATTEND Urology
PROC: 8E0W4CZ Robotic Assisted Procedure of Trunk Region, Percutaneous Endoscopic Approach (ICD-10-PCS; principal; 2022-01-12 11:55)
PROC: 0VT04ZZ Resection of Prostate, Percutaneous Endoscopic Approach (ICD-10-PCS; principal; 2022-01-12 11:55)
DX: N40.1 Benign prostatic hyperplasia with lower urinary tract symptoms (principal); N41.0 Acute prostatitis; I10 Essential (primary) hypertension; E11.9 Type 2 diabetes mellitus without complications; M19.90 Unspecified osteoarthritis, unspecified site; Z79.82 Long term (current) use of aspirin; Z79.899 Other long term (current) drug therapy; Z79.84 Long term (current) use of oral hypoglycemic drugs
CPT/HCPCS: 64999; 86850; 86900; 86901; 88307

== ENCOUNTER → 2022-04-05 | Outpatient (CLI) | payer MEDICARE ==
--- NOTE | 2022-04-05 10:50 | P.PN ---
Subjective DATE: 04/05/2022 FOLLOW UP VISIT. Patient with obstructive sleep apnea hypopnea syndrome return to sleep center for follow-up visit. Information from previous visit have been reviewed. Patient is using BiPAP equipment every night for the whole night, getting PAP supplies in time. The patient does not have significant problems with the mask, PAP unit and humidification. [place] sleepiness scale is 5. I checked information from BiPAP unit. BiPAP unit pressure 15/11 cm H2O. Usage is 100 % for more then 4 hours, average 6.6 hours per night. Leak is 30 l/m, which is in acceptable range. Apnea Hypopnea Index is 4.2 , which is normal. MEDICATIONS:1. Metformin 500 mg once a day 2. Venlafaxine 150 mg once a day 3. Xarelto go 20 mg once a day 4. Ramipril 10 mg once a day 5. Fenofibrate 160 mg once a day 6. Aspirin 81 mg once a day During physical exam: GENERAL: A pleasant patient without any distress. VITAL SIGNS: BP 137/83, HR 93, RR 16, weight 226.6 patient lost 2 pounds comparing to the previous visit, temperature 94.8, oxygen saturation at room air 98 % . HEENT: PERRLA, EOMI.low position of soft palate, Mallapati4 . NECK: Supple. No JVD. LUNGS: Clear to percussion and to auscultation. Good air exchange. No wheezing or rhonchi. HEART: S1, S2 regular. ABDOMEN: Soft and nontender. Slightly obese EXTREMITIES: No clubbing or cyanosis. 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 No focal deficit. Impressions: 1. Obstructive sleep apnea-hypopnea syndrome. Patient demonstrated great compliance with treatment, benefiting from treatment. 2. Obesity. 3. diabetes mellitus. 4. History of depression. 5. Hyperlipidemia. 6. Status post appendectomy. 7. Status post the surgical treatment of benign prostatic hypertrophy in January 2022. Plan: 1. Continue using PAP equipment every night for the whole night. 2. To change air filter at least 1-2 times per month. 3. PAP unit should stay lower then position of the head. 4. Advised patient to remove all remaining water from humidifier canister daily and make it dry after each usage. Refill canister with fresh distilled water before each usage. 5. Sleep hygiene with regular time in bed for at least 8 hours. 6. Precautions related to driving. No driving if feel any sleepiness. 7. I will maintain prescription for PAP supplies including mask, tube, filters. 8. Follow up visit in 6 months or earlier if patient has any problems. 9. Watching and losing weight. Thank you very much for allowing me to participate in the management of your patient. Cyrus Adams MD, PhD, FAASM. Diplomat of [employer], Sleep Medicine Board by [employer] [facility] [place]
== END | disposition home or self-care (01) ==
LOC: SLEEP 10:08
PROVIDERS: ATTEND Internal Medicine
DX: G47.33 Obstructive sleep apnea (adult) (pediatric) (principal); E66.9 Obesity, unspecified; E11.9 Type 2 diabetes mellitus without complications; E78.5 Hyperlipidemia, unspecified; Z86.59 Personal history of other mental and behavioral disorders; Z90.49 Acquired absence of other specified parts of digestive tract; Z98.890 Other specified postprocedural states
CPT/HCPCS: 99212

== ENCOUNTER → 2022-06-19 | Outpatient (CLI) | payer MEDICARE ==
--- NOTE | 2022-06-19 16:07 | CT ---
CT CHEST FOR PULMONARY EMBOLISM. EXAMINATION TYPE: CT angio chest DATE OF EXAM: 06/19/2022 INDICATION: PE CT DLP: 571 mGycm, Automated exposure control for dose reduction was used. CONTRAST: Patient injected with 73 mL of Isovue 370. COMPARISON: 01/24/2022 TECHNIQUE: CT of the chest is performed on a spiral scan at 2 mm thick sections. Study is performed with intravenous contrast timed for evaluation for pulmonary embolism. This will limit additional po rtions of the evaluation. 3-D MIP images reconstructed by the technologist are reviewed on the compu ter in the coronal and sagittal planes. FINDINGS: No persistent filling defects are evident to suggest an acute pulmonary embolism.. Right lower lobe p ulmonary emboli are not identified. The left lower lobe pulmonary emboli are evident. No mediastinal or hilar adenopathy enlarged by CT criteria is evident. The ascending aorta diameter at the level of the main pulmonary artery is 3.8 cm. The main pulmonary artery diameter at the bifur cation is 2.6 cm. Lung windows are clear. No consolidations or nodules are evident. Limited CT section through the upper abdomen are unremarkable. IMPRESSIONS: 1. No acute or chronic pulmonary emboli identified.
== END | disposition home or self-care (01) ==
LOC: RADCTMAIN 10:03
PROVIDERS: ATTEND Internal Medicine Critical Care Medicine
DX: I26.99 Other pulmonary embolism without acute cor pulmonale (principal)
CPT/HCPCS: 82565; 84520; 71275; 36415; Q9967

== ENCOUNTER → 2022-06-29 | Outpatient (CLI) | payer MEDICARE ==
--- NOTE | 2022-06-30 07:05 | US ---
EXAMINATION TYPE: US kidneys/renal and bladder DATE OF EXAM: 06/29/2022 COMPARISON: NONE CLINICAL HISTORY: R31.0 Gross hematuria. Gross hematuria. EXAM MEASUREMENTS: Right Kidney: 12.7 x 5.4 x 5.7 cm Left Kidney: 11.5 x 6.2 x 6.3 cm Right Kidney: Appears minimally enlarged. No hydronephrosis or masses seen Left Kidney: Area of mixed echogenicity seen laterally: 3.6 x 3.4 x 3.9 cm. Appears to be mostly ane choic with some internal echoes. Bladder: Appears wnl Bilateral Jets seen: Yes IMPRESSION: No evidence of obstructive uropathy Left renal renal lesion which could represent complex cysts given its internal echoes. Consider CT/MR I with IV contrast for further evaluation.
== END | disposition home or self-care (01) ==
LOC: RADUSWWP 15:50
PROVIDERS: ATTEND Urology
DX: R31.0 Gross hematuria (principal)
CPT/HCPCS: 76770

== ENCOUNTER → 2022-07-30 | Outpatient (CLI) | payer MEDICARE ==
--- NOTE | 2022-07-31 01:49 | MR ---
EXAMINATION TYPE: MR kidney wo/w con DATE OF EXAM: 07/30/2022 COMPARISON: Renal ultrasound 06/29/2022 HISTORY: Left kidney mass CONTRAST: Standard multiplanar, multisequence MRI departmental protocol images were obtained without contrast a nd with 10 mL intravenous Gadavist gadolinium contrast. Kidneys have normal size. There is a sharply marginated rounded fluid signal area in the medial left kidney consistent with a simple cortical cyst and corresponds to the ultrasound abnormality on previo us exam of 06/29/2022. No retroperitoneal adenopathy. No hydronephrosis. Ureters are not dilated. No adrenal mass. Liver spleen and pancreas appear intact. The bile ducts are not dilated. Gallbladder appears normal. The stomach is intact. There is no sign of ascites. Contrast images show no pathologic enhancement there is normal enhancement of the portal venous syste m. There is no ascites. IMPRESSION: Simple cortical cyst medial left kidney. No suspicious renal mass. No renal obstruction. Otherwise ne gative exam.
== END | disposition home or self-care (01) ==
LOC: RADMRIMAIN 12:55
PROVIDERS: ATTEND Urology
DX: N28.1 Cyst of kidney, acquired (principal); N28.89 Other specified disorders of kidney and ureter
CPT/HCPCS: 74183; A9585

== ENCOUNTER → 2023-01-03 | Outpatient (CLI) | payer MEDICARE ==
--- NOTE | 2023-01-03 14:14 | P.PN ---
Subjective DATE: 01/03/2023 FOLLOW UP VISIT. Patient with obstructive sleep apnea hypopnea syndrome return to sleep center for follow-up visit. Information from previous visit have been reviewed. Patient is using PAP equipment every night for the whole night, getting PAP supplies in time. The patient does not have significant problems with the mask, PAP unit and humidification. [place] sleepiness scale is 2, which is normal. I checked information from PAP unit. BPAP unit pressure 15/11 cm H2O. Usage is 100 % for more then 4 hours, average 7.1 hours per night. Leak is 5 l/m, which is in acceptable range. Apnea Hypopnea Index is 2.9, which is normal. MEDICATIONS:1. Metformin 500 mg once a day 2. Xarelto 20 mg once a day 3. Ramipril 10 mg once a day 4. Fenofibrate 160 mg once a day 5. Aspirin 81 mg once a day During physical exam: GENERAL: A pleasant patient without any distress. VITAL SIGNS: BP 150/73, HR 89, RR 18 , weight 243.0, temperature 98.7, oxygen saturation at room air 96 % . HEENT: PERRLA, EOMI.low position of soft palate, Mallapati 4 . NECK: Supple. No JVD. LUNGS: Clear to percussion and to auscultation. Good air exchange. No wheezing or rhonchi. HEART: S1, S2 regular. ABDOMEN: Soft and nontender. Obese EXTREMITIES: No clubbing or cyanosis. 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 No focal deficit. Impressions: 1. Obstructive sleep apnea-hypopnea syndrome. Patient demonstrated great compliance with treatment, benefiting from treatment. 2. Obesity, body mass index 38.2, patient increased his weight 117 pounds comparing to the previous visit. 3. Diabetes mellitus. Hemoglobin A1c according to patient last checked 5.9. 4. Hyperlipidemia. 5. History of depression. 6. Status post surgical treatment for BPH in January 2022. 7. Status post right knee replacement in September 2022. Plan: 1. Continue using PAP equipment every night for the whole night. 2. To change air filter at least 1-2 times per month. 3. PAP unit should stay lower then position of the head. 4. Advised patient to remove all remaining water from humidifier canister daily and make it dry after each usage. Refill canister with fresh distilled water before each usage. 5. Sleep hygiene with regular time in bed for at least 8 hours. 6. Precautions related to driving. No driving if feel any sleepiness. 7. I will maintain prescription for PAP supplies including mask, tube, filters. 8. Watching and losing weight. 9. Follow up visit in 6 months or earlier if patient has any problems. Thank you very much for allowing me to participate in the management of your patient. Cyrus Adams MD, PhD, FAASM. Diplomat of [place] [employer], Sleep Medicine Board by [place] [employer] [facility] [place]
== END ==
LOC: SLEEP 13:41
PROVIDERS: ATTEND Internal Medicine
DX: G47.33 Obstructive sleep apnea (adult) (pediatric) (principal); Z79.85 Long-term (current) use of injectable non-insulin antidiabetic drugs; Z79.82 Long term (current) use of aspirin; E11.9 Type 2 diabetes mellitus without complications; E66.9 Obesity, unspecified; E78.5 Hyperlipidemia, unspecified; N40.0 Benign prostatic hyperplasia without lower urinary tract symptoms; R63.4 Abnormal weight loss; Z68.38 Body mass index [BMI] 38.0-38.9, adult; Z79.01 Long term (current) use of anticoagulants; Z79.84 Long term (current) use of oral hypoglycemic drugs; Z96.651 Presence of right artificial knee joint; Z99.89 Dependence on other enabling machines and devices; Z98.890 Other specified postprocedural states; Z68.32 Body mass index [BMI] 32.0-32.9, adult
CPT/HCPCS: 99212

== ENCOUNTER → 2023-07-26 | Outpatient (CLI) | payer MEDICARE ==
--- NOTE | 2023-07-26 12:07 | P.PN ---
Subjective DATE: 07/26/2023 FOLLOW UP VISIT. Patient with obstructive sleep apnea hypopnea syndrome return to sleep center for follow-up visit. Information from previous visit have been reviewed. Patient is using PAP equipment every night for the whole night, getting PAP supplies in time. The patient does not have significant problems with the mask, PAP unit and humidification. [place] sleepiness scale is 3. I checked information from PAP unit. BPAP unit pressure 15/11 cm H2O. Usage is 100 % for more then 4 hours, average 7.3 hours per night. Leak is 2 l/m, which is in acceptable range. Apnea Hypopnea Index is 2.8, which is normal. No chest pain, no shortness of breath, no dizziness. MEDICATIONS:1. Ramipril 10 mg once a day 2. Metformin 500 mg once a day 3. Venlafaxine 150 mg once a day 4. Fenofibrate 160 mg once a day 5. Meloxicam 15 mg once a day 6. Aspirin 81 mg once a day 7. Aricept 10 mg once a day During physical exam: GENERAL: A pleasant patient without any distress. VITAL SIGNS: BP 124/79, HR 84, RR 18 , weight 242, temperature 97.7, oxygen saturation at room air 97 % . HEENT: PERRLA, EOMI.low position of soft palate, Mallapati 4 . NECK: Supple. No JVD. LUNGS: Clear to percussion and to auscultation. Good air exchange. No wheezing or rhonchi. HEART: S1, S2 irregular. ABDOMEN: Soft and nontender.[] EXTREMITIES: No clubbing or cyanosis. 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 No focal deficit. Impressions: 1. Obstructive sleep apnea-hypopnea syndrome. Patient demonstrated great compliance with treatment, benefiting from treatment. 2.. Regularly irregular heartbeats by auscultation and by checking pulse, possibly atrial fibrillation. 3. Diabetes mellitus. 4. Hyperlipidemia. 5. History of depression. 6. Status post surgical treatment for BPH and 2021. 7. Status post right knee replacement in September 2022. Plan: 1. Patient was recommended to go to emergency room, he prefers to see his [employer] professional [employer] .We contacted patient's [employer] office and arrange his appointment for tomorrow morning, his [employer] is not in the office today. 2. Continue using PAP equipment every night for the whole night. 3. PAP unit should stay lower then position of the head. 4. Advised patient to remove all remaining water from humidifier canister daily and make it dry after each usage. Refill canister with fresh distilled water before each usage. 5. Sleep hygiene with regular time in bed for at least 8 hours. 6. Precautions related to driving. No driving if feel any sleepiness. 7. I will maintain prescription for PAP supplies including mask, tube, filters. 8. Follow up visit in 6 months or earlier if patient has any problems. 9. Watching weight. Thank you very much for allowing me to participate in the management of your patient. Cyrus Adams MD, PhD, FAASM. Diplomat of [place] [employer], Sleep Medicine Board by [place] [employer] [facility] [place]
== END ==
LOC: 3 N SLEEP 10:49
PROVIDERS: ATTEND Internal Medicine
DX: G47.33 Obstructive sleep apnea (adult) (pediatric) (principal); E11.9 Type 2 diabetes mellitus without complications; E78.5 Hyperlipidemia, unspecified; F32.A Depression, unspecified; N40.0 Benign prostatic hyperplasia without lower urinary tract symptoms; Z79.1 Long term (current) use of non-steroidal anti-inflammatories (NSAID); Z79.84 Long term (current) use of oral hypoglycemic drugs; Z79.899 Other long term (current) drug therapy; Z96.651 Presence of right artificial knee joint; Z79.82 Long term (current) use of aspirin
CPT/HCPCS: 99212

== ENCOUNTER → 2024-03-26 | Outpatient (CLI) | payer MEDICARE ==
[2024-03-26 16:11] VITALS: BP 144/82; PULSE 84; RESP 16; TEMP 98.7
--- NOTE | 2024-03-26 16:39 | P.PROGSL ---
Subjective DATE: 03/26/2024 FOLLOW UP VISIT. Patient with obstructive sleep apnea hypopnea syndrome return to sleep center for follow-up visit. Information from previous visit have been reviewed. Patient is using PAP equipment every night for the whole night, getting PAP supplies in time. The patient does not have significant problems with the mask, PAP unit and humidification. [place] sleepiness scale is 3, which is normal. I checked information from PAP unit. BPAP unit pressure 15/11 cm H2O. Usage is 100% for more then 4 hours, average 7.6 hours per night. Leak is 2 l/m, which is in perfect range. Apnea Hypopnea Index is 1.7, which is normal. MEDICATIONS have been reviewed, please see below. During physical exam: GENERAL: A pleasant patient without any distress. VITAL SIGNS: Please see below, weight is 241 lbs. HEENT: PERRLA, EOMI.low position of soft palate, Mallapati 4 . NECK: Supple. No JVD. LUNGS: Clear to percussion and to auscultation. Good air exchange. No wheezing or rhonchi. HEART: S1, S2 not regular. ABDOMEN: Soft and nontender.[] EXTREMITIES: No clubbing or cyanosis. 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 No focal deficit. Impressions: 1. Obstructive sleep apnea-hypopnea syndrome. Patient demonstrated great compliance with treatment, benefiting from treatment. 2. Diabetes mellitus. 3. Not regular heartbeats. 4. Hyperlipidemia. 5. History of depression. 6. Status post right knee replacement in 2022. 7. Status post surgical treatment for BPH in 2021. Plan: 1. Continue using PAP equipment every night for the whole night. 2. Sleep hygiene with regular time in bed for at least 7.5-8 hours 3. PAP unit should stay lower then position of the head. 4. Advised patient to remove all remaining water from humidifier canister daily and make it dry after each usage. Refill canister with fresh distilled water before each usage. 5. Watching weight. 6. Precautions related to driving. No driving if feel any sleepiness. 7. I will maintain prescription for PAP supplies including mask, tube, filters. 8. Follow up visit in 6 months or earlier if patient has any problems. Thank you very much for allowing me to participate in the management of your patient. Cyrus Adams MD, PhD, FAASM. Diplomat of [employer], Sleep Medicine Board by [employer] [facility] [place] Objective - Vital Signs Vital Signs: Vital Signs Temp 98.7 F 03/26/24 16:10 Pulse 84 03/26/24 16:10 Resp 16 03/26/24 16:10 BP 144/82 03/26/24 16:10 Pulse Ox 97 03/26/24 16:10 FiO2 Intake & Output 03/25/24 03/26/24 03/26/24 18:59 06:59 18:59 Weight 109.316 kg Home Medications: Home Medications Medication Instructions Recorded Confirmed Type Alfuzosin HCl [Alfuzosin HCl ER] 10 mg PO HS 01/10/22 03/26/24 History Ascorbic Acid [Vitamin C] 1,000 mg PO DAILY 01/10/22 03/26/24 History Aspirin [Adult Low Dose Aspirin EC] 81 mg PO DAILY 01/10/22 01/24/22 History Celecoxib [CeleBREX] 200 mg PO BID 01/10/22 01/24/22 History Cholecalciferol [Vitamin D3 (125 250 mcg PO DAILY 01/10/22 03/26/24 History Mcg = 5000 Iu)] Cyanocobalamin/Cobamamide [Vitamin 1 tab SUBLINGUAL DAILY 01/10/22 03/26/24 History B-12 5,000 Mcg Tab Sl] Donepezil HCl [Aricept] 10 mg PO HS 01/10/22 03/26/24 History Fenofibrate 160 mg PO DAILY 01/10/22 03/26/24 History Finasteride [Proscar] 5 mg PO DAILY 01/10/22 03/26/24 History Folic Acid 1 mg PO DAILY 01/10/22 03/26/24 History Mv-Min/Folic/K1/Lycopen/Lutein 1 tab PO DAILY 01/10/22 03/26/24 History [Centrum Silver Men Tablet] Ubidecarenone [Co Q-10] 400 mg PO DAILY 01/10/22 03/26/24 History Venlafaxine HCl [Effexor XR] 150 mg PO DAILY 01/10/22 03/26/24 History Venlafaxine HCl [Effexor] 75 mg PO HS 01/10/22 03/26/24 History Vitamin E 400 unit PO DAILY 01/10/22 03/26/24 History metFORMIN HCL 500 mg PO DAILY 01/10/22 03/26/24 History ramipriL [Altace] 10 mg PO DAILY 01/10/22 03/26/24 History Rivaroxaban [Xarelto Starter Pack] 0 mg PO DIRECTED 30 Days #1 01/26/22 Rx packet
== END ==
LOC: 3 N SLEEP 15:14
PROVIDERS: ATTEND Internal Medicine
DX: G47.33 Obstructive sleep apnea (adult) (pediatric) (principal); E11.9 Type 2 diabetes mellitus without complications; E78.5 Hyperlipidemia, unspecified; F32.A Depression, unspecified; R00.9 Unspecified abnormalities of heart beat; Z98.890 Other specified postprocedural states; Z96.651 Presence of right artificial knee joint; Z99.89 Dependence on other enabling machines and devices; Z79.84 Long term (current) use of oral hypoglycemic drugs; Z79.01 Long term (current) use of anticoagulants
CPT/HCPCS: 99212

== ENCOUNTER → 2024-12-03 | Outpatient (CLI) | payer MEDICARE ==
[2024-12-03 10:23] VITALS: BP 148/83; PULSE 88; RESP 16; TEMP 98.7
--- NOTE | 2024-12-03 12:10 | P.PROGSL ---
Subjective DATE: 12/03/2024 FOLLOW UP VISIT. Patient with obstructive sleep apnea hypopnea syndrome return to sleep center for follow-up visit. Information from previous visit have been reviewed. Patient is using PAP equipment every night for the whole night, getting PAP supplies in time. The patient does not have significant problems with the mask, PAP unit and humidification. [place] sleepiness scale is 2, which is normal. I checked information from PAP unit. BPAP unit pressure 15/11 cm H2O. Usage is 100% for more then 4 hours, average 7 hours per night. Leak is 6 l/m, which is in acceptable range. Apnea Hypopnea Index is 5.7, which is very slightly increased, during previous visit it was 1.7. MEDICATIONS have been reviewed, please see below. During physical exam: GENERAL: A pleasant patient without any distress. VITAL SIGNS: Please see below, weight is 253 lbs. HEENT: PERRLA, EOMI.low position of soft palate, Mallapati 4 . NECK: Supple. No JVD. LUNGS: Clear to percussion and to auscultation. Good air exchange. No wheezing or rhonchi. HEART: S1, S2 regular. ABDOMEN: Soft and nontender. Obese EXTREMITIES: No clubbing or cyanosis. 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 No focal deficit. Impressions: 1. Obstructive sleep apnea-hypopnea syndrome. Patient demonstrated great compliance with treatment, benefiting from treatment. 2. Obesity, BMI 40.2, patient increased weight on 12 pounds comparing with previous visit. 3. Diabetes mellitus. 4. History of depression. 5. History of cardiac arrhythmia. 6. Hyperlipidemia. 7. Status post surgical treatment for BPH in 2021. 8. Status post right knee replacement in 2022. I slightly increased pressure in BiPAP to 16/12 cm of water. Plan: 1. Continue using PAP equipment every night for the whole night. 2. Sleep hygiene with regular time in bed for at least 7.5-8 hours 3. PAP unit should stay lower then position of the head. 4. Advised patient to remove all remaining water from humidifier canister daily and make it dry after each usage. Refill canister with fresh distilled water before each usage. 5. Watching weight. 6. Precautions related to driving. No driving if feel any sleepiness. 7. I will maintain prescription for PAP supplies including mask, tube, filters. 8. Follow up visit in 8 months or earlier if patient has any problems. Thank you very much for allowing me to participate in the management of your patient. Cyrus Adams MD, PhD, FAASM. Diplomat of [employer], Sleep Medicine Board by [employer] Panel [facility] [place] cc: Martha Steiner DO Objective - Vital Signs Vital Signs: Vital Signs Temp 98.7 F 12/03/24 10:22 Pulse 88 12/03/24 10:22 Resp 16 12/03/24 10:22 BP 148/83 12/03/24 10:22 Pulse Ox 96 12/03/24 10:22 FiO2 Intake & Output 12/02/24 12/03/24 12/03/24 18:59 06:59 18:59 Weight 114.759 kg Home Medications: Home Medications Medication Instructions Recorded Confirmed Type Alfuzosin HCl [Alfuzosin HCl ER] 10 mg PO HS 01/10/22 03/26/24 History Ascorbic Acid [Vitamin C] 1,000 mg PO DAILY 01/10/22 12/03/24 History Aspirin [Adult Low Dose Aspirin EC] 81 mg PO DAILY 01/10/22 01/24/22 History Celecoxib [CeleBREX] 200 mg PO BID 01/10/22 01/24/22 History Cholecalciferol [Vitamin D3 (125 250 mcg PO DAILY 01/10/22 12/03/24 History Mcg = 5000 Iu)] Cyanocobalamin/Cobamamide [Vitamin 1 tab SUBLINGUAL DAILY 01/10/22 12/03/24 History B-12 5,000 Mcg Tab Sl] Donepezil HCl [Aricept] 10 mg PO HS 01/10/22 12/03/24 History Fenofibrate 160 mg PO DAILY 01/10/22 12/03/24 History Finasteride [Proscar] 5 mg PO DAILY 01/10/22 03/26/24 History Folic Acid 1 mg PO DAILY 01/10/22 12/03/24 History Mv-Min/Folic/K1/Lycopen/Lutein 1 tab PO DAILY 01/10/22 03/26/24 History [Centrum Silver Men Tablet] Ubidecarenone [Co Q-10] 400 mg PO DAILY 01/10/22 12/03/24 History Venlafaxine HCl [Effexor XR] 150 mg PO DAILY 01/10/22 03/26/24 History Venlafaxine HCl [Effexor] 75 mg PO HS 01/10/22 03/26/24 History Vitamin E 400 unit PO DAILY 01/10/22 12/03/24 History metFORMIN HCL 500 mg PO DAILY 01/10/22 12/03/24 History ramipriL [Altace] 10 mg PO DAILY 01/10/22 12/03/24 History Rivaroxaban [Xarelto Starter Pack] 0 mg PO DIRECTED 30 Days #1 01/26/22 Rx packet Metoprolol Succinate (ER) [Toprol 25 mg PO DAILY 12/03/24 12/03/24 History XL] Rosuvastatin Calcium 10 mg PO HS 12/03/24 12/03/24 History
== END ==
LOC: 3 N SLEEP 10:02
PROVIDERS: ATTEND Internal Medicine
DX: G47.33 Obstructive sleep apnea (adult) (pediatric) (principal); E11.9 Type 2 diabetes mellitus without complications; E66.9 Obesity, unspecified; E78.5 Hyperlipidemia, unspecified; Z96.651 Presence of right artificial knee joint; Z68.41 Body mass index [BMI] 40.0-44.9, adult; Z86.59 Personal history of other mental and behavioral disorders; Z87.438 Personal history of other diseases of male genital organs; Z86.79 Personal history of other diseases of the circulatory system
CPT/HCPCS: 99212